=== PATIENT | female | born 1950 | race Caucasian/White ===

== ENCOUNTER 2018-04-09 18:31 | Emergency (ER) | payer MEDICARE, BC ==
[2018-04-09] MEDS: HYDROCODONE/APAP (10/325) TAB PO (20:03)
[2018-04-09] MEDS: DIPHTH/TET/ACEL PERTUSS (ADULT) 0.5 ML VIAL IM* (20:04)
[2018-04-09] MEDS: LIDOCAINE 1% (MDV) 10 ML INJ INFIL (20:56)
[2018-04-09] MEDS: LIDOCAINE 1% (MPF) 5 ML VIAL INFIL (20:56)
[2018-04-09] MEDS: CEFTRIAXONE 500 MG INJ IM (22:37)
== END 2018-04-09 22:56 | disposition home or self-care (01) ==
LOC: FTE 18:31
DX: S01.511A Laceration without foreign body of lip, initial encounter (principal); W54.0XXA Bitten by dog, initial encounter; Y92.9 Unspecified place or not applicable; Z23 Encounter for immunization
CPT/HCPCS: 12052; 70140; 90471; 90715; 96372; 99284-25